=== PATIENT | male | born 1955 | race Caucasian/White ===

== ENCOUNTER 2018-07-27 10:45 | Outpatient (REF) | payer OTHER, SELFPAY ==
[2018-07-27 22:49] LABS: Cholesterol 215 mg/dL (50-200); HDL Cholesterol 47 mg/dL (40-60); LDL CHOLESTEROL 155 mg/dL (<100); Triglyceride 95 mg/dL (30-150)
== END 2018-07-27 11:05 ==
LOC: LBN 10:45
PROVIDERS: PCP Internal Medicine; Visit Provider Internal Medicine Cardiovascular Disease
DX: Z00.00 Encounter for general adult medical examination without abnormal findings (principal); E78.00 Pure hypercholesterolemia, unspecified; R00.2 Palpitations; Z85.820 Personal history of malignant melanoma of skin; Z95.0 Presence of cardiac pacemaker
CPT/HCPCS: 80061; 83721

== ENCOUNTER 2019-08-14 10:28 | Outpatient (REF) | payer OTHER, SELFPAY ==
[2019-08-14 22:30] LABS: BUN 21 mg/dL (7-18); CREATININE 1.31 mg/dL (0.70-1.30); Calcium 10.3 mg/dL (8.5-10.1); Calculated LDL 164 mg/dL; Chloride 107 mmol/L (98-107); Cholesterol 226 mg/dL (50-200); Estimated GFR 54.91 (mL/min/1.73m2); Glucose 91 mg/dL (70-100); HDL Cholesterol 44 mg/dL (40-60); Potassium 4.8 mmol/L (3.5-5.1); Sodium 141 mmol/L (136-145); Triglyceride 93 mg/dL (30-150)
== END 2019-08-14 10:48 ==
LOC: NCHCN 10:28
PROVIDERS: PCP Internal Medicine; Visit Provider Internal Medicine
DX: E83.52 Hypercalcemia (principal); N18.3 Chronic kidney disease, stage 3 (moderate); E78.00 Pure hypercholesterolemia, unspecified
CPT/HCPCS: 80048; 80061

== ENCOUNTER 2019-08-17 14:22 | Outpatient (REF) | payer OTHER, SELFPAY ==
[2019-08-21 12:04] LABS: PSA, Screening 4.6 ng/ml (0-4.5)
== END 2019-08-17 14:42 ==
LOC: NCHCN 14:22
PROVIDERS: PCP Internal Medicine; Visit Provider Internal Medicine
DX: Z12.5 Encounter for screening for malignant neoplasm of prostate (principal)
CPT/HCPCS: 84153

== ENCOUNTER 2019-10-24 11:30 | Outpatient (REF) | payer OTHER, SELFPAY ==
[2019-10-24 21:27] LABS: Calculated LDL 181 mg/dL; Cholesterol 248 mg/dL (<200); HDL Cholesterol 48 mg/dL (40-60); Triglyceride 99 mg/dL (<150)
== END 2019-10-24 11:50 ==
LOC: NCHCN 11:30
PROVIDERS: PCP Internal Medicine; Visit Provider Internal Medicine
DX: E78.00 Pure hypercholesterolemia, unspecified (principal)
CPT/HCPCS: 80061

== ENCOUNTER 2020-01-30 08:14 | Outpatient (REF) | payer OTHER, SELFPAY ==
[2020-01-30 21:36] LABS: Calculated LDL 157 mg/dL (<100); Cholesterol 212 mg/dL (<200); HDL Cholesterol 42 mg/dL (40-60); Triglyceride 69 mg/dL (<150)
== END 2020-01-30 08:34 ==
LOC: NCHCN 08:14
PROVIDERS: PCP Internal Medicine; Visit Provider Internal Medicine
DX: E78.00 Pure hypercholesterolemia, unspecified (principal)
CPT/HCPCS: 80061

== ENCOUNTER 2020-08-19 09:21 | Outpatient (REF) | payer OTHER, SELFPAY ==
[2020-08-19 22:16] LABS: Calculated LDL 171 mg/dL (<100); Cholesterol 239 mg/dL (<200); HDL Cholesterol 49 mg/dL (40-60); Triglyceride 96 mg/dL (<150)
[2020-08-20 17:34] LABS: PSA, Screening 4.1 ng/mL (0.0-4.5)
== END 2020-08-19 09:41 ==
LOC: NCHCN 09:21
PROVIDERS: PCP Internal Medicine; Visit Provider Internal Medicine
DX: E78.00 Pure hypercholesterolemia, unspecified (principal); Z12.5 Encounter for screening for malignant neoplasm of prostate; N40.0 Benign prostatic hyperplasia without lower urinary tract symptoms
CPT/HCPCS: 80061; 84153

== ENCOUNTER 2021-01-10 14:03 | Outpatient (REF) | payer OTHER, SELFPAY ==
[2021-01-10 21:54] LABS: BUN 26 mg/dL (7-18); CREATININE 1.3 mg/dL (0.70-1.30); Calcium 10.3 mg/dL (8.5-10.1); Calculated LDL 166 mg/dL (<100); Chloride 106 mmol/L (98-107); Cholesterol 233 mg/dL (<200); Estimated GFR 55.23 (mL/min/1.73m2); Glucose 84 mg/dL (74-106); HDL Cholesterol 51 mg/dL (40-60); Potassium 4.3 mmol/L (3.5-5.1); Sodium 141 mmol/L (136-145); Triglyceride 82 mg/dL (<150)
[2021-01-13 10:36] LABS: PSA, Screening 5.9 ng/mL (0.0-4.5)
== END 2021-01-10 14:04 | disposition home or self-care (01) ==
LOC: NCHCN 14:03
PROVIDERS: PCP Internal Medicine; Visit Provider Internal Medicine
DX: N18.9 Chronic kidney disease, unspecified (principal); Z13.220 Encounter for screening for lipoid disorders; Z12.5 Encounter for screening for malignant neoplasm of prostate
CPT/HCPCS: 80048; 80061; 84153

== ENCOUNTER 2021-07-11 20:37 | Outpatient (REF) | payer OTHER, SELFPAY | END 2021-07-11 20:38 | disposition home or self-care (01) | LOC: NCHCN 20:37 | PROVIDERS: PCP Internal Medicine; Visit Provider Internal Medicine | DX: R30.0 Dysuria (principal) | CPT/HCPCS: 87086 ==

== ENCOUNTER 2021-08-21 08:03 | Outpatient (REF) | payer OTHER, SELFPAY ==
[2021-08-21 21:26] LABS: Anion Gap 8.3 mmol/L (3-11); BUN 29 mg/dL (7-18); CO2 26.7 mmol/L (21.0-32.0); CREATININE 1.4 mg/dL (0.70-1.30); Calcium 10.3 mg/dL (8.5-10.1); Calculated LDL 112 mg/dL (<100); Chloride 107 mmol/L (98-107); Cholesterol 183 mg/dL (<200); Estimated GFR 50.55 (mL/min/1.73m2); Glucose 88 mg/dL (74-106); HDL Cholesterol 54 mg/dL (40-60); Potassium 4.3 mmol/L (3.5-5.1); Sodium 142 mmol/L (136-145); Triglyceride 85 mg/dL (<150)
[2021-08-22 17:48] LABS: PSA, Diagnostic 5.4 ng/mL (0.0-4.5)
== END 2021-08-21 08:04 | disposition home or self-care (01) ==
LOC: NCHCN 08:03
PROVIDERS: PCP Internal Medicine; Visit Provider Internal Medicine
DX: Z13.220 Encounter for screening for lipoid disorders (principal); R97.20 Elevated prostate specific antigen [PSA]; E78.00 Pure hypercholesterolemia, unspecified; N18.9 Chronic kidney disease, unspecified
CPT/HCPCS: 80048; 80061; 84153

== ENCOUNTER 2021-08-28 19:01 | Outpatient (REF) | payer OTHER, SELFPAY ==
[2021-08-28 21:46] LABS: ALT 28 U/L (16-63); AST 19 U/L (15-37); Albumin 4.1 g/dL (3.4-5.0); Alkaline Phosphatase 80 U/L (46-116); Bilirubin, Direct 0.1 mg/dL (0.0-0.2); Bilirubin, Total 0.5 mg/dL (0.2-1.0); Total Protein 7.1 g/dL (6.4-8.2)
[2021-08-28 22:12] LABS: Vitamin D 25 Total 37.2 ng/mL (30-100)
[2021-09-02 12:14] LABS: Parathyroid Hormone,Intact 154 pg/mL (19-88)
== END 2021-08-28 19:02 | disposition home or self-care (01) ==
LOC: NCHCN 19:01
PROVIDERS: PCP Internal Medicine; Visit Provider Internal Medicine
DX: Z13.9 Encounter for screening, unspecified (principal); E83.52 Hypercalcemia
CPT/HCPCS: 80076; 82306; 83970

== ENCOUNTER 2022-02-18 10:17 | Outpatient (REF) | payer OTHER, SELFPAY ==
[2022-02-18 17:59] LABS: Anion Gap 7.7 mmol/L (3-11); BUN 30 mg/dL (7-18); CO2 26.3 mmol/L (21.0-32.0); CREATININE 1.4 mg/dL (0.70-1.30); Chloride 107 mmol/L (98-107); Estimated GFR 50.55 (mL/min/1.73m2); Glucose 90 mg/dL (74-106); Potassium 4.5 mmol/L (3.5-5.1); Sodium 141 mmol/L (136-145)
[2022-02-18 22:45] LABS: PSA, Diagnostic 5.7 ng/mL (0.0-4.5)
== END 2022-02-18 10:18 | disposition home or self-care (01) ==
LOC: NCHCN 10:17
PROVIDERS: PCP Internal Medicine; Visit Provider Internal Medicine
DX: Z00.00 Encounter for general adult medical examination without abnormal findings (principal); E83.52 Hypercalcemia; R94.4 Abnormal results of kidney function studies; R97.20 Elevated prostate specific antigen [PSA]
CPT/HCPCS: 80048; 84153

== ENCOUNTER 2022-09-21 21:19 | Outpatient (REF) | payer OTHER, SELFPAY ==
[2022-09-21 21:32] LABS: Anion Gap 4.4 mmol/L (3-11); BUN 26 mg/dL (7-18); CO2 29.6 mmol/L (21.0-32.0); CREATININE 1.3 mg/dL (0.70-1.30); Chloride 107 mmol/L (98-107); Estimated GFR 59.84 (mL/min/1.73m2); Glucose 84 mg/dL (74-106); Potassium 4.2 mmol/L (3.5-5.1); Sodium 141 mmol/L (136-145)
[2022-09-22 17:59] LABS: Parathyroid Hormone,Intact 114 pg/mL (19-88)
[2022-09-22 18:03] LABS: PSA, Diagnostic 6.2 ng/mL (<=4.5)
== END 2022-09-21 21:20 | disposition home or self-care (01) ==
LOC: NCHCN 21:19
PROVIDERS: PCP Internal Medicine; Visit Provider Internal Medicine
DX: E21.3 Hyperparathyroidism, unspecified (principal); R97.20 Elevated prostate specific antigen [PSA]; N18.9 Chronic kidney disease, unspecified; R03.0 Elevated blood-pressure reading, without diagnosis of hypertension
CPT/HCPCS: 80048; 83970; 84153

== ENCOUNTER 2023-04-01 18:18 | Outpatient (REF) | payer BC, SELFPAY ==
[2023-03-31 18:21] LABS: Anion Gap 3.6 mmol/L (3-11); BUN 31 mg/dL (7-18); CO2 29.4 mmol/L (21.0-32.0); CREATININE 1.4 mg/dL (0.70-1.30); Calcium 10.2 mg/dL (8.5-10.1); Calculated LDL 126 mg/dL (<100); Chloride 107 mmol/L (98-107); Cholesterol 199 mg/dL (<200); Estimated GFR 54.75 (mL/min/1.73m2); Glucose 92 mg/dL (74-106); HDL Cholesterol 58 mg/dL (40-60); Potassium 4.2 mmol/L (3.5-5.1); Sodium 140 mmol/L (136-145); Triglyceride 76 mg/dL (<150)
--- OUTSIDE RECORDS SUMMARY | 2023-04-01 18:21 | XMS_ITS | CCD ---
Author Name Unknown Address [address] [place] [address] [id number] Organization Unknown Address [address] [place] [address] [phone] Care Team Providers Care Engineering Professionals Name Role Phone JAKI GIMENEZ Attending Physician [phone] Vital Signs Unknown or Not Available. Allergies Unknown or Not Available. Procedures Unknown or Not Available. History of Immunizations Unknown or Not Available. Problems Unknown or Not Available. Results Unknown or Not Available. Active Medications Unknown or Not Available. Medications Administered During Visit Unknown or Not Available. Encounters Encounter Diagnosis Diagnosis Code Start Date Hypercalcemia [id number] 10/23/2021 Social History Smoking Status Code Start Date End Date Never smoker [id number] Patient Decision Aids Unknown or Not Available. Discharge Instructions You were admitted to [facility] on 10/23/2021 14:21 with a principal diagnosis of Hypercalcemia You were discharged from [facility] on 10/23/2021 14:21 Should you have any questions prior to discharge, please contact a member of your healthcare team. If you have left the hospital and have any questions, please contact your primary care physician. Chief Complaint and Reason For Visit Chief Complaint Date of Onset HYPERPARATHYROIDISM Function Status Unknown or Not Available. Plan of Care Unknown or Not Available. Referral/Transition of Care Unknown or Not Available.
--- OUTSIDE RECORDS SUMMARY | 2023-04-01 18:21 | XMS_ITS | CCD ---
Author Name Unknown Address [address] [place] [address] [phone] Organization Unknown Address [address] [place] [address] [phone] Care Team Providers Care Envelope Cutter Name Role Phone MARIA E VILLANUEVA Attending Physician [phone] MARIA E VILLANUEVA Rounding (Secondary) Physician [phone] Vital Signs Unknown or Not Available. Allergies Unknown or Not Available. Procedures Unknown or Not Available. History of Immunizations Unknown or Not Available. Problems Unknown or Not Available. Results Unknown or Not Available. Active Medications Unknown or Not Available. Medications Administered During Visit Unknown or Not Available. Encounters Encounter Diagnosis Diagnosis Code Start Date Pure hypercholesterolemia [id number] 2021 Social History Smoking Status Code Start Date End Date Never smoker [id number] Patient Decision Aids Unknown or Not Available. Discharge Instructions You were admitted to [facility] on 11/12/2022 11:44 with a principal diagnosis of Pure hypercholesterolemia, unspecified You were discharged from [facility] on 11/12/2022 00:00 Should you have any questions prior to discharge, please contact a member of your healthcare team. If you have left the hospital and have any questions, please contact your primary care physician. Chief Complaint and Reason For Visit Unknown or Not Available. Function Status Unknown or Not Available. Plan of Care Unknown or Not Available. Referral/Transition of Care Unknown or Not Available.
--- OUTSIDE RECORDS SUMMARY | 2023-04-01 18:21 | XMS_ITS | CCD ---
Author Name Unknown Address [address] [place] [address] [phone] Organization Unknown Address [address] [place] [address] [phone] Care Team Providers Care Auto Heater Mechanic Name Role Phone MARIA E VILLANUEVA Attending Physician [phone] MARIA E VILLANUEVA Rounding (Secondary) Physician [phone] Vital Signs Unknown or Not Available. Allergies Unknown or Not Available. Procedures Unknown or Not Available. History of Immunizations Unknown or Not Available. Problems Unknown or Not Available. Results Unknown or Not Available. Active Medications Unknown or Not Available. Medications Administered During Visit Unknown or Not Available. Encounters Encounter Diagnosis Diagnosis Code Start Date Hyperlipidemia, unspecified E785 10/22 Social History Smoking Status Code Start Date End Date Never smoker [id number] Patient Decision Aids Unknown or Not Available. Discharge Instructions You were admitted to [facility] on 10/31/2021 14:33 with a principal diagnosis of Hyperlipidemia, unspecified You were discharged from [facility] on 10/31/2021 00:00 Should you have any questions prior [...]
[2023-04-01 19:37] LABS: PSA, Screening 5.5 ng/mL (<=4.5)
== END 2023-04-01 18:19 | disposition home or self-care (01) ==
LOC: NCHCN 18:18
PROVIDERS: PCP Internal Medicine; Visit Provider Internal Medicine
DX: I10 Essential (primary) hypertension (principal); N18.9 Chronic kidney disease, unspecified; R97.20 Elevated prostate specific antigen [PSA]; Z12.5 Encounter for screening for malignant neoplasm of prostate
CPT/HCPCS: 80048; 80061; 84153

== ENCOUNTER 2023-09-29 09:20 | Outpatient (REF) | payer BC, SELFPAY ==
[2023-09-29 16:19] LABS: ALT 23 U/L (16-63); AST 16 U/L (15-37); Albumin 3.6 g/dL (3.4-5.0); Alkaline Phosphatase 78 U/L (46-116); Anion Gap 6.2 mmol/L (3-11); BUN 28 mg/dL (7-18); Bilirubin, Total 0.5 mg/dL (0.2-1.0); CO2 27.8 mmol/L (21.0-32.0); CREATININE 1.4 mg/dL (0.70-1.30); Calcium 10.7 mg/dL (8.5-10.1); Calculated LDL 85 mg/dL (<100); Chloride 106 mmol/L (98-107); Cholesterol 149 mg/dL (<200); Estimated GFR 54.41 (mL/min/1.73m2); Glucose 93 mg/dL (74-106); HDL Cholesterol 51 mg/dL (40-60); Potassium 4.2 mmol/L (3.5-5.1); Sodium 140 mmol/L (136-145); Total Protein 6.8 g/dL (6.4-8.2); Triglyceride 69 mg/dL (<150)
[2023-09-29 22:32] LABS: Parathyroid Hormone,Intact 128 pg/mL (19-88)
[2023-09-29 23:02] LABS: PSA, Screening 7.7 ng/mL (<=4.5)
== END 2023-09-29 09:21 | disposition home or self-care (01) ==
LOC: NCHCN 09:20
PROVIDERS: PCP Internal Medicine; Visit Provider Internal Medicine
DX: E78.5 Hyperlipidemia, unspecified (principal); E83.52 Hypercalcemia; R97.20 Elevated prostate specific antigen [PSA]; Z12.5 Encounter for screening for malignant neoplasm of prostate
CPT/HCPCS: 80053; 80061; 84153; 83970

== ENCOUNTER 2023-11-12 10:27 | Outpatient (REF) | payer BC, SELFPAY ==
[2023-11-16 14:20] LABS: Free PSA/PSA Ratio 0.36 ratio
== END 2023-11-12 10:28 | disposition home or self-care (01) ==
LOC: LBN 10:27
PROVIDERS: PCP Internal Medicine
DX: R97.20 Elevated prostate specific antigen [PSA] (principal)
CPT/HCPCS: 84154

== ENCOUNTER 2023-12-27 16:00 | Outpatient (REF) | payer BC, SELFPAY ==
[2023-12-27 15:38] LABS: BUN 28 mg/dL (7-18); CREATININE 1.4 mg/dL (0.70-1.30); Calcium 10.3 mg/dL (8.5-10.1); Chloride 107 mmol/L (98-107); Estimated GFR 54.41 (mL/min/1.73m2); Glucose 96 mg/dL (74-106); Potassium 4.2 mmol/L (3.5-5.1); Sodium 141 mmol/L (136-145)
[2023-12-27 15:44] LABS: Bacteria Rare HPF (Negative); C & S Indicated? No; Casts Negative LPF (Negative); Crystals Negative HPF (Negative); Epithelial Cells Rare HPF (Negative); Mucus Trace (Negative); RBC 0-2 HPF (0-2); WBC 0-2 HPF (0-5)
[2023-12-27 16:19] LABS: COMMENT (LAB VIEW ONLY) 125.07 mg/dL; Microalb ug/mg Crea 22.2 ug/mg Cr
[2023-12-28 09:08] LABS: Parathyroid Hormone,Intact 166 pg/mL (19-88)
== END 2023-12-27 16:01 | disposition home or self-care (01) ==
LOC: NCHCN 16:00
PROVIDERS: PCP Internal Medicine; Visit Provider Internal Medicine
DX: N18.9 Chronic kidney disease, unspecified (principal)
CPT/HCPCS: 80048; 81015; 82043; 82570; 83970

== ENCOUNTER 2024-04-27 12:55 | Outpatient (REF) | payer BC, SELFPAY ==
[2024-04-27 14:24] LABS: Anion Gap 7.9 mmol/L (3-11); BUN 29 mg/dL (7-18); CO2 26.1 mmol/L (21.0-32.0); CREATININE 1.6 mg/dL (0.70-1.30); Calcium 10.6 mg/dL (8.5-10.1); Chloride 107 mmol/L (98-107); Estimated GFR 46.06 (mL/min/1.73m2); Glucose 117 mg/dL (74-106); Sodium 141 mmol/L (136-145)
[2024-04-27 22:26] LABS: PSA, Diagnostic 6.6 ng/mL (<=6.5); Parathyroid Hormone,Intact 134 pg/mL (19-88)
== END 2024-04-27 12:56 | disposition home or self-care (01) ==
LOC: NCHCN 12:55
PROVIDERS: PCP Internal Medicine; Visit Provider Internal Medicine
DX: E21.3 Hyperparathyroidism, unspecified (principal); R97.20 Elevated prostate specific antigen [PSA]
CPT/HCPCS: 80048; 83970; 84153

== ENCOUNTER 2024-10-25 08:26 | Outpatient (REF) | payer BC, SELFPAY ==
[2024-10-25 15:36] LABS: HCT 45.5 % (40.0-50.0); MCH 29.8 pg (27.0-33.0); MCV 91 fL (80-95); MPV 11.3 fL (8.0-11.0); Platelet Count 188 10^3/uL (130-400); RBC 5.03 10^6/uL (4.36-5.78); RDW 12.5 % (11.8-14.1); RDW-SD 41.1 fL; WBC 4.48 10^3/uL (4.4-10.8)
[2024-10-25 16:19] LABS: Iron 53 ug/dL (65-175); Total Iron Binding Capacity 278 ug/dL (250-450); Transferrin Sat 19 % (20-55)
[2024-10-25 16:31] LABS: BUN 38 mg/dL (7-18); CREATININE 1.8 mg/dL (0.70-1.30); Calcium 10.7 mg/dL (8.5-10.1); Calculated LDL 101 mg/dL (<100); Chloride 106 mmol/L (98-107); Cholesterol 178 mg/dL (<200); Estimated GFR 39.99 (mL/min/1.73m2); Ferritin 78 ng/mL (26-388); Glucose 86 mg/dL (74-106); HDL Cholesterol 61 mg/dL (40-60); Potassium 4.4 mmol/L (3.5-5.1); Sodium 143 mmol/L (136-145); Triglyceride 81 mg/dL (<150)
[2024-10-26 09:04] LABS: PSA, Screening 7.1 ng/mL (<=6.5)
== END 2024-10-25 08:27 | disposition home or self-care (01) ==
LOC: NCHCN 08:26
PROVIDERS: PCP Internal Medicine; Visit Provider Internal Medicine
DX: R97.20 Elevated prostate specific antigen [PSA] (principal); N18.9 Chronic kidney disease, unspecified; Z13.0 Encounter for screening for diseases of the blood and blood-forming organs and certain disorders involving the immune mechanism; E78.5 Hyperlipidemia, unspecified
CPT/HCPCS: 80048; 80061; 84153; 85027; 82728; 83540; 83550

== ENCOUNTER 2025-02-13 15:46 | Outpatient (REF) | payer OTHER, SELFPAY ==
[2025-02-13 22:11] LABS: Bilirubin Negative (Negative); Blood Negative (Negative); Clarity Clear (Clear); Glucose Negative (Negative); Ketones Trace mg/dL (Negative); Leukocyte Esterase Negative (Negative); Nitrite Negative (Negative); Specific Gravity 1.025 (1.005-1.025); Urobilinogen 0.2 mg/dL (Up to 0.2); pH 5.5 (5-8)
[2025-02-13 22:15] LABS: Albumin 3.7 g/dL (3.4-5.0); Anion Gap 7.6 mmol/L (3-11); BUN 35 mg/dL (7-18); CO2 27.4 mmol/L (21.0-32.0); CREATININE 1.9 mg/dL (0.70-1.30); Calcium 10.9 mg/dL (8.5-10.1); Chloride 105 mmol/L (98-107); Estimated GFR 37.48 (mL/min/1.73m2); Glucose 97 mg/dL (74-106); PHOSPHORUS 3.3 mg/dL (2.6-4.7); Potassium 4.3 mmol/L (3.5-5.1); Sodium 140 mmol/L (136-145)
[2025-02-13 22:31] LABS: COMMENT (LAB VIEW ONLY) 233.51 mg/dL; Microalb ug/mg Crea 19.1 ug/mg Cr
[2025-02-14 18:19] LABS: Parathyroid Hormone,Intact 164.6 pg/mL (19.0-88.0)
== END 2025-02-13 15:47 | disposition home or self-care (01) ==
LOC: NCHCN 15:46
PROVIDERS: PCP Internal Medicine; Visit Provider Internal Medicine
DX: N18.31 Chronic kidney disease, stage 3a (principal); Q61.3 Polycystic kidney, unspecified; E83.52 Hypercalcemia; E21.3 Hyperparathyroidism, unspecified; I10 Essential (primary) hypertension; Z79.899 Other long term (current) drug therapy; R80.9 Proteinuria, unspecified
CPT/HCPCS: 80069; 81003; 82043; 82570; 83970

== ENCOUNTER 2025-05-02 10:04 | Outpatient (REF) | payer OTHER, SELFPAY ==
[2025-05-02 14:58] LABS: Vitamin D 25 Total 27 ng/mL (30-100)
[2025-05-02 22:43] LABS: PSA, Diagnostic 6.6 ng/mL (<=6.5)
== END 2025-05-02 10:05 | disposition home or self-care (01) ==
LOC: NCHCN 10:04
PROVIDERS: PCP Internal Medicine; Visit Provider Internal Medicine
DX: R97.20 Elevated prostate specific antigen [PSA] (principal); E55.9 Vitamin D deficiency, unspecified
CPT/HCPCS: 82306; 84153

== ENCOUNTER 2025-05-22 08:54 | Outpatient (REF) | payer OTHER, SELFPAY ==
[2025-05-22 15:52] LABS: HCT 43.1 % (40.0-50.0); HGB 14.0 g/dL (13.5-17.5); MCH 28.9 pg (27.0-33.0); MCHC 32.5 % (32.0-36.0); MCV 89 fL (80-95); MPV 11.2 fL (8.0-11.0); Platelet Count 173 10^3/uL (130-400); RBC 4.84 10^6/uL (4.36-5.78); RDW 11.8 % (11.8-14.1); RDW-SD 38.2 fL; WBC 5.15 10^3/uL (4.4-10.8)
== END 2025-05-22 08:55 | disposition home or self-care (01) ==
LOC: LBN 08:54
PROVIDERS: PCP Internal Medicine; Visit Provider Internal Medicine
DX: N18.31 Chronic kidney disease, stage 3a (principal); Q61.3 Polycystic kidney, unspecified; I10 Essential (primary) hypertension; Z79.899 Other long term (current) drug therapy
CPT/HCPCS: 85027

== ENCOUNTER 2025-10-29 13:33 | Outpatient (REF) | payer OTHER, SELFPAY ==
[2025-10-29 15:00] LABS: Anion Gap 6.4 mmol/L (3-11); BUN 29 mg/dL (9-23); CO2 29.6 mmol/L (20.0-31.0); Calcium 11.3 mg/dL (8.3-10.6); Chloride 106 mmol/L (98-107); Glucose 95 mg/dL (74-106); Potassium 4.7 mmol/L (3.5-5.1); Sodium 142 mmol/L (136-145)
[2025-10-29 15:04] LABS: Vitamin D 25 Total 36 ng/mL (30-100)
[2025-10-30 00:02] LABS: PSA, Screening 6.8 ng/mL (<=6.5)
== END 2025-10-29 13:34 | disposition home or self-care (01) ==
LOC: NCHCN 13:33
PROVIDERS: PCP Internal Medicine; Visit Provider Internal Medicine
DX: I10 Essential (primary) hypertension (principal); E21.3 Hyperparathyroidism, unspecified; N40.0 Benign prostatic hyperplasia without lower urinary tract symptoms; E55.9 Vitamin D deficiency, unspecified
CPT/HCPCS: 80048; 82306; 84153; 83970